=== PATIENT | female | born 1960 | race Caucasian/White ===

== ENCOUNTER 2020-05-18 21:12 | Observation (INO) | payer BC ==
[2020-05-18] MEDS ORDERED: Sodium Chloride 0.9% 10 ML Syringe FLUSH PRN (21:39)
--- NOTE | 2020-05-18 21:54 | EDM.PDOC ---
ED HPI GENERAL MEDICAL PROBLEM - General Chief Complaint: Cardiovascular Problem Stated Complaint: CHEST PAIN/TIGHTNESS Time Seen by Provider: 05/18/20 21:30 Source of Information: Reports: Patient History Limitations: Reports: No Limitations - History of Present Illness INITIAL COMMENTS - FREE TEXT/NARRATIVE: 59 YO WF PRESENTS TO ER COMPLAINING OF CHEST PAIN ON/OFF X 3 DAYS. PT REPORTS SHE HASN'T BEEN FEELING WELL FOR THE LAST 5 DAYS WITH COMPLAINTS OF GENERALIZED HEADACHE, DIZZINESS, CHEST TIGHTNESS AND NAUSEA. PT WAS SEEN IN CLINIC 3 DAYS AGO AND HAD A FULL EVALUATION INCLUDING COVID TEST, EKG, TROP I, CBC, CMP, TSH AND URINE WHICH ALL WERE NEGATIVE PER [facility] CHART/OLD RECORDS. PT WAS STARTED ON LISINOPRIL 10MG FOR NEW ONSET HYPERTENSION AND WAS TOLD HER SYMPTOMS WERE RELATED TO NEW ONSET HYPERTENSION. PT REPORTS THIS WEEKEND SHE DEVELOPED PALPITATIONS, WITH CHEST PAIN AND MILD SHORTNESS OF BREATH. PT DENIES FEVER/CHILLS, NO COUGH/CONGESTION, NO MYALGIAS OR BODY ACHES. Duration: Day(s): (5) Location: Reports: Chest Quality: Reports: Pressure Severity: Moderate Improves with: Reports: Rest Worsens with: Reports: Breathing Associated Symptoms: Reports: Chest Pain, Headaches, Nausea/Vomiting, Shortness of Breath. Denies: Cough, cough w sputum, Fever/Chills, Malaise, Rash, Seizure, Syncope, Weakness Left Upper Chest Pain Score (Numeric/FACES): 5 - Related Data Allergies Allergy/AdvReac Type Severity Reaction Status Date / Time No Known Allergies Allergy Verified 05/18/20 22:38 Home Meds: Home Meds Ascorbate Calcium [Vitamin C] 500 mg PO DAILY 01/18/14 [History] Calcium Carbonate/Vitamin D3 [Caltrate 600 Plus D3 Tablet] 1 tab PO DAILY 01/18/14 [History] Cetirizine [ZyrTEC] 10 mg PO DAILY PRN 01/18/14 [History] Cholecalciferol (Vitamin D3) [Vitamin D3] 2,000 unit PO ASDIRECTED 01/18/14 [History] Ibuprofen 200 mg PO Q4H PRN 01/18/14 [History] Multivitamin with Minerals [Multiple Vitamin] 1 tab PO DAILY 01/18/14 [History] Vitamin E 1,000 units PO DAILY 01/18/14 [History] ED ROS GENERAL - Review of Systems Review Of Systems: See Below Constitutional: Reports: No Symptoms HEENT: Reports: No Symptoms Respiratory: Reports: Shortness of Breath Cardiovascular: Reports: Chest Pain, Blood Pressure Problem, Lightheadedness Endocrine: Reports: No Symptoms GI/Abdominal: Reports: Nausea. Denies: Abdominal Pain, Diarrhea, Vomiting : Reports: No Symptoms Musculoskeletal: Reports: No Symptoms Skin: Reports: No Symptoms Neurological: Reports: Headache Psychiatric: Reports: No Symptoms Hematologic/Lymphatic: Reports: No Symptoms Immunologic: Reports: No Symptoms ED EXAM, GENERAL - Physical Exam Exam: See Below Exam Limited By: No Limitations General Appearance: Alert, WD/WN, No Apparent Distress Eye Exam: Bilateral Eye: EOMI, PERRL Head: Atraumatic, Normocephalic Neck: Normal Inspection, Supple, Non-Tender, Full Range of Motion Respiratory/Chest: No Respiratory Distress, Lungs Clear, Normal Breath Sounds, No Accessory Muscle Use, Chest Non-Tender Cardiovascular: Normal Peripheral Pulses, Regular Rate, Rhythm, No Edema, No G allop, No JVD, No Murmur, No Rub GI/Abdominal: Normal Bowel Sounds, Soft, Non-Tender, No Organomegaly, No Distention, No Abnormal Bruit, No Mass Back Exam: Normal Inspection, Full Range of Motion, NT Extremities: Normal Inspection, Normal Range of Motion, Non-Tender, Normal Capillary Refill, No Pedal Edema Neurological: Alert, Oriented, CN II-XII Intact, Normal Cognition, Normal Gait, Normal Reflexes, No Motor/Sensory Deficits Psychiatric: Normal Affect, Normal Mood Skin Exam: Warm, Dry, Intact, Normal Color, No Rash #1 Interpretation EKG Date: 05/18/20 Time: 21:24 Rhythm: NSR Rate (Beats/Min): 78 [place]: Normal P-Wave: Present QRS: Normal ST-T: Normal QT: Normal Comparison: No Change Course - Vital Signs Last Recorded V/S: Last Vital Signs Temp 36.3 C 05/18/20 21:15 Pulse 89 05/18/20 21:15 Resp 15 05/18/20 21:15 BP 182/104 H 05/18/20 21:15 Pulse Ox 96 05/18/20 21:15 - Orders/Labs/Meds Orders: Active Orders 24 hr Category Date Time Status Patient Status Manage Transfer [TRANSFER] Routine ADT 05/18/20 22:42 Active Patient Status [ADT] Routine ADT 05/18/20 22:43 Active Cardiac Monitoring [RC] CONTINUOUS Care 05/18/20 22:43 Active EKG Documentation Completion [RC] ASDIRECTED Care 05/18/20 21:38 Active Oxygen Therapy [RC] PRN Care 05/18/20 22:43 Active Peripheral IV Care [RC] . DIRECTED Care 05/18/20 21:39 Active Up With Assistance [RC] ASDIRECTED Care 05/18/20 22:43 Active VTE/DVT Education [RC] PER UNIT ROUTINE Care 05/18/20 22:43 Active Vital Signs [RC] Q4H Care 05/18/20 22:43 Active Heart Healthy Diet [DIET] Diet 05/19/20 Breakfast Active CXR [Chest 2V] [CR] Stat Exams 05/18/20 21:37 Ordered B-TYPE NATRIURETIC PEPTIDE,BNP [CHEM] Stat Lab 05/18/20 21:45 Results CK W CKMB [CHEM] Stat Lab 05/18/20 21:45 Results CMP [COMPREHENSIVE METABOLIC PN,CMP] [CHEM] Stat Lab 05/18/20 21:45 Results CORONAVIRUS COVID-19 RAPID [MOLEC] Stat Lab 05/18/20 22:05 Ordered INR,PT,PROTHROMBIN TIME [COAG] Stat Lab 05/18/20 21:40 Ordered MAGNESIUM [CHEM] AM Lab 05/19/20 05:11 Ordered PTT,PARTIAL THROMBOPLSTIN TIME [COAG] Stat Lab 05/18/20 21:40 Ordered TROPONIN I [CHEM] AM Lab 05/19/20 05:11 Ordered TROPONIN I [CHEM] Stat Lab 05/18/20 21:45 Results TROPONIN I [CHEM] Timed Lab 05/19/20 02:00 Ordered Nitroglycerin [Nitro-Bid 2%] Med 05/18/20 22:45 Ordered 1 gm TOP Q6H Sodium Chloride 0.9% [Saline Flush] Med 05/18/20 21:39 Active 10 ml FLUSH Q8HR PRN Peripheral IV Insertion Adult [OM.PC] Routine Oth 05/18/20 21:39 Ordered Resuscitation Status Routine Resus Stat 05/18/20 22:43 Ordered EKG 12 Lead [EK] Stat Ther 05/18/20 21:23 Ordered Medication Orders Nitroglycerin (Nitro-Bid 2%) 1 gm TOP Q6H BHARATI Sodium Chloride (Saline Flush) 10 ml FLUSH Q8HR PRN PRN Reason: keep vein open Last Admin: 05/18/20 21:45 Dose: 10 ml Documented by: CHIQUIS Labs: Laboratory Tests 05/18/20 05/18/20 05/18/20 Range/Units 21:45 21:45 21:45 WBC 4.97 L (5.00-10.00) 10^3/uL RBC 4.48 (3.80-5.50) 10^6/uL Hgb 13.5 (12.0-16.0) g/dL Hct 41.6 (37.0-47.0) % MCV 92.9 H (82.0-92.0) fL MCH 30.1 (27.0-31.0) pg MCHC 32.5 (32.0-36.0) g/dL RDW 12.6 (11.5-14.5) % Plt Count 181 (150-400) 10^3/uL MPV 10.0 (7.4-10.4) fL Immature Gran % (Auto) 0.0 (0.0-5.0) % Neut % (Auto) 60.2 (50.0-70.0) % Lymph % (Auto) 27.4 (20.0-40.0) % Vance % (Auto) 7.6 (2.0-8.0) % Eos % (Auto) 4.2 H (1.0-3.0) % Baso % (Auto) 0.6 (0.0-1.0) % Neut # (Auto) 2.99 (2.50-7.00) 10^3/uL Lymph # (Auto) 1.36 (1.00-4.00) 10^3/uL Vance # (Auto) 0.38 (0.10-0.80) 10^3/uL Eos # (Auto) 0.21 (0.10-0.30) 10^3/uL Baso # (Auto) 0.03 (0.00-0.10) 10^3/uL Immature Gran # (Auto) 0.00 (0.00-0.50) 10^3/uL D-Dimer, Quantitative 127 (<400) ng/mL Sodium 145 (136-145) mmol/L Potassium 3.8 (3.3-5.3) mmol/L Chloride 105 (98-115) mmol/L Carbon Dioxide 30.0 (21.0-32.0) mmol/L Anion Gap 13.8 (5-15) mmol/L BUN 24 (6-25) mg/dL Creatinine 1.14 (0.51-1.17) mg/dL Est Cr Clr Drug Dosing TNP Estimated GFR (MDRD) 48 mL/min Glucose 94 (75 - 99) mg/dL Calcium 8.9 (8.7-10.3) mg/dL Total Bilirubin 0.7 (0.2-1.0) mg/dL AST 21 (15-37) U/L ALT 24 (12-78) U/L Alkaline Phosphatase 88 (46-116) IU/L Creatine Kinase 124 (26-276) U/L CK-MB (CK-2) 2.20 (0.00-4.30) ng/mL Troponin I 0.04 (0.00-0.070) ng/mL Total Protein 7.2 (6.4-8.2) g/dL Albumin 4.08 (3.00-4.80) g/dL SARS CoV-2 RNA Rapid LITTLE (NEGATIVE) 05/18/20 Range/Units 22:05 WBC (5.00-10.00) 10^3/uL RBC (3.80-5.50) 10^6/uL Hgb (12.0-16.0) g/dL Hct (37.0-47.0) % MCV (82.0-92.0) fL MCH (27.0-31.0) pg MCHC (32.0-36.0) g/dL RDW (11.5-14.5) % Plt Count (150-400) 10^3/uL MPV (7.4-10.4) fL Immature Gran % (Auto) (0.0-5.0) % Neut % (Auto) (50.0-70.0) % Lymph % (Auto) (20.0-40.0) % Vance % (Auto) (2.0-8.0) % Eos % (Auto) (1.0-3.0) % Baso % (Auto) (0.0-1.0) % Neut # (Auto) (2.50-7.00) 10^3/uL Lymph # (Auto) (1.00-4.00) 10^3/uL Vance # (Auto) (0.10-0.80) 10^3/uL Eos # (Auto) (0.10-0.30) 10^3/uL Baso # (Auto) (0.00-0.10) 10^3/uL Immature Gran # (Auto) (0.00-0.50) 10^3/uL D-Dimer, Quantitative (<400) ng/mL Sodium (136-145) mmol/L Potassium (3.3-5.3) mmol/L Chloride (98-115) mmol/L Carbon Dioxide (21.0-32.0) mmol/L Anion Gap (5-15) mmol/L BUN (6-25) mg/dL Creatinine (0.51-1.17) mg/dL Est Cr Clr Drug Dosing Estimated GFR (MDRD) mL/min Glucose (75 - 99) mg/dL Calcium (8.7-10.3) mg/dL Total Bilirubin (0.2-1.0) mg/dL AST (15-37) U/L ALT (12-78) U/L Alkaline Phosphatase (46-116) IU/L Creatine Kinase (26-276) U/L CK-MB (CK-2) (0.00-4.30) ng/mL Troponin I (0.00-0.070) ng/mL Total Protein (6.4-8.2) g/dL Albumin (3.00-4.80) g/dL SARS CoV-2 RNA Rapid LITTLE Negative (NEGATIVE) Meds: Medications Generic Name Dose Route Start Last Admin Trade Name Freq PRN Reason Stop Dose Admin Nitroglycerin 1 gm 05/18/20 22:45 Nitro-Bid 2% TOP Q6H BHARATI Sodium Chloride 10 ml 05/18/20 21:39 05/18/20 21:45 Saline Flush FLUSH 10 ml Q8HR PRN Administration keep vein open Discontinued Medications Generic Name Dose Route Start Last Admin Trade Name Freq PRN Reason Stop Dose Admin Aspirin 324 mg 05/18/20 22:45 Aspirin PO 05/18/20 22:46 ONETIME ONE Ketorolac Tromethamine 30 mg 05/18/20 22:27 05/18/20 22:32 Toradol IVPUSH 05/18/20 22:28 30 mg ONETIME ONE Administration - Radiology Interpretation Free Text/Narrative:: CXR- NAD Departure - Departure Time of Disposition: 22:46 Disposition: Refer to Observation Condition: Good Clinical Impression: Uncontrolled hypertension Chest pain Qualifiers: Chest pain type: unspecified Qualified Code(s): R07.9 - Chest pain, unspecified Referrals: Viki Lo, HOP TRAINER [Primary Care Provider] - Forms: ED Department Discharge Sepsis Event Note (ED) - Focused Exam Vital Signs: Vital Signs Temp Pulse Resp BP Pulse Ox 05/18/20 21:15 36.3 C 89 15 182/104 H 96 - My Orders Last 24 Hours: My Active Orders 05/18/20 21:23 EKG 12 Lead [EK] Stat 05/18/20 21:37 CXR [Chest 2V] [CR] Stat 05/18/20 21:38 EKG Documentation Completion [RC] ASDIRECTED 05/18/20 21:39 Peripheral IV Care [RC] . DIRECTED Sodium Chloride 0.9% [Saline Flush] 10 ml FLUSH Q8HR PRN Peripheral IV Insertion Adult [OM.PC] Routine 05/18/20 21:40 INR,PT,PROTHROMBIN TIME [COAG] Stat PTT,PARTIAL THROMBOPLSTIN TIME [COAG] Stat 05/18/20 21:45 B-TYPE NATRIURETIC PEPTIDE,BNP [CHEM] Stat CK W CKMB [CHEM] Stat CMP [COMPREHENSIVE METABOLIC PN,CMP] [CHEM] Stat TROPONIN I [CHEM] Stat 05/18/20 22:05 CORONAVIRUS COVID-19 RAPID [MOLEC] Stat 05/18/20 22:42 Patient Status Manage Transfer [TRANSFER] Routine 05/18/20 22:43 Patient Status [ADT] Routine Cardiac Monitoring [RC] CONTINUOUS Oxygen Therapy [RC] PRN Up With Assistance [RC] ASDIRECTED VTE/DVT Education [RC] PER UNIT ROUTINE Vital Signs [RC] Q4H Resuscitation Status Routine 05/18/20 22:45 Nitroglycerin [Nitro-Bid 2%] 1 gm TOP Q6H 05/19/20 02:00 TROPONIN I [CHEM] Timed 05/19/20 05:11 MAGNESIUM [CHEM] AM TROPONIN I [CHEM] AM 05/19/20 Breakfast Heart Healthy Diet [DIET] - Assessment/Plan Last 24 Hours: My Active Orders 05/18/20 21:23 EKG 12 Lead [EK] Stat 05/18/20 21:37 CXR [Chest 2V] [CR] Stat 05/18/20 21:38 EKG Documentation Completion [RC] ASDIRECTED 05/18/20 21:39 Peripheral IV Care [RC] . DIRECTED Sodium Chloride 0.9% [Saline Flush] 10 ml FLUSH Q8HR PRN Peripheral IV Insertion Adult [OM.PC] Routine 05/18/20 21:40 INR,PT,PROTHROMBIN TIME [COAG] Stat PTT,PARTIAL THROMBOPLSTIN TIME [COAG] Stat 05/18/20 21:45 B-TYPE NATRIURETIC PEPTIDE,BNP [CHEM] Stat CK W CKMB [CHEM] Stat CMP [COMPREHENSIVE METABOLIC PN,CMP] [CHEM] Stat TROPONIN I [CHEM] Stat 05/18/20 22:05 CORONAVIRUS COVID-19 RAPID [MOLEC] Stat 05/18/20 22:42 Patient Status Manage Transfer [TRANSFER] Routine 05/18/20 22:43 Patient Status [ADT] Routine Cardiac Monitoring [RC] CONTINUOUS Oxygen Therapy [RC] PRN Up With Assistance [RC] ASDIRECTED VTE/DVT Education [RC] PER UNIT ROUTINE Vital Signs [RC] Q4H Resuscitation Status Routine 05/18/20 22:45 Nitroglycerin [Nitro-Bid 2%] 1 gm TOP Q6H 05/19/20 02:00 TROPONIN I [CHEM] Timed 05/19/20 05:11 MAGNESIUM [CHEM] AM TROPONIN I [CHEM] AM 05/19/20 Breakfast Heart Healthy Diet [DIET] Assessment:: 1. CHEST PAIN 2. UNCONTROLLED HYPERTENSION Plan: 1. ADMIT TO MEDICINE- [facility] ACCEPTING 2. NITRO/ASA 3. TROP I Q4 X 3 4. SUPPORTIVE CARE
[2020-05-18] MEDS ORDERED: Ketorolac 30 MG/ML SDV IVPUSH ONE (22:27)
[2020-05-18 22:28] LABS: ANION GAP 13.8 mmol/L (5-15); CHLORIDE,CL 105 mmol/L (98-115); SODIUM,NA 145 mmol/L (136-145)
[2020-05-18] MEDS ORDERED: Aspirin 81 MG Tab.Chew PO ONE (22:45)
[2020-05-18] MEDS: Nitroglycerin 2% Oint 1 GM UD Packet TOP SCH (23:09)
[2020-05-18 23:36] LABS: PTT,PARTIAL THROMBOPLSTIN TIME 25.7 SEC (22.8-31.4)
[2020-05-19] MEDS ORDERED: Acetaminophen 325 MG Tab PO PRN ×2 (00:01→04:36)
[2020-05-19] MEDS ORDERED: Nicotine 21 MG/24 Hr Patch TRDERM SCH (00:15)
[2020-05-19] MEDS: Nitroglycerin 2% Oint 1 GM UD Packet TOP SCH (04:55)
--- NOTE | 2020-05-19 08:45 | CT ---
[id number] CT/CT Head WO IV EXAM: CT Head WO IV CLINICAL DATA: HEADACHE. COMPARISON STUDY: None FINDINGS: No intracranial hemorrhage, extra-axial fluid collection, mass, or acute ischemia. No hydrocephalus. Calvarium intact. Paranasal sinusitis. Right mastoid air cells and middle ear cavities are clear. Mild mucosal thickening in the left middle ear. No air-fluid levels. Findings are nonspecific. IMPRESSION: Negative examination of the brain. Paranasal sinusitis as well as mild mucosal thickening in the left middle ear, nonspecific. Correlate for left-sided headache. Jaren Valencia MD 05/19/20 0843 Thank you for allowing us to participate in the care of your patient.
--- NOTE | 2020-05-19 08:56 | CR ---
[id number] RAD/RAD Chest PA And Lateral EXAM: RAD Chest PA And Lateral INDICATION: CHEST PAIN/TIGHTNESS COMPARISON: None. DISCUSSION: Cardiomediastinal silhouette is normal in size and contour. Lungs are clear. No pleural effusion or pneumothorax. Nipple artifact bilaterally in the mid lungs. IMPRESSION: Negative examination of the chest. Jaren Valencia MD 05/19/20 0855 Thank you for allowing us to participate in the care of your patient.
[2020-05-19 09:01] LABS: ANION GAP 14.3 mmol/L (5-15); CHLORIDE,CL 108 mmol/L (98-115); SODIUM,NA 144 mmol/L (136-145)
--- NOTE | 2020-05-19 10:00 | PCM.HP.2 ---
H&P History of Present Illness - General Date of Service: 05/19/20 Admit Problem/Dx: Admission Diagnosis/Problem Admission Diagnosis/Problem Chest pain Source of Information: Patient History Limitations: Reports: No Limitations - History of Present Illness Initial Comments - Free Text/Narative: 59 year old female presented to the ED on 05/18/20 via personal vehicle with complaints of chest pain, headache and dizziness that had been present intermittently for several days. She was recently started on lisinopril for HTN. Cardiac workup was negative, she was admitted observation for ACS rule out and monitoring. Left Upper Chest Pain Score (Numeric/FACES): 0 Headache Pain Score (Numeric/FACES): 4 - Related Data Allergies/Adverse Reactions: Allergies Allergy/AdvReac Type Severity Reaction Status Date / Time No Known Allergies Allergy Verified 05/18/20 22:38 Home Medications: Home Meds Ascorbate Calcium [Vitamin C] 500 mg PO BEDTIME 01/18/14 [History] Cetirizine [ZyrTEC] 10 mg PO DAILY PRN 01/18/14 [History] Ibuprofen 200 mg PO Q4H PRN 01/18/14 [History] Multivitamin with Minerals [Multiple Vitamin] 1 tab PO BEDTIME 01/18/14 [History] Vitamin E 1,000 units PO BEDTIME 01/18/14 [History] Albuterol Sulfate [Albuterol Sulfate Hfa] 2 puff INH ASDIRECTED PRN 05/18/20 [History] Calcium Carbonate/Vitamin D3 [Calcium 600-Vit D3 200 Tablet] 1 tab PO BEDTIME 05/18/20 [History] Chromium Amino Acid Chelate [Chromium] 200 mcg PO BEDTIME 05/18/20 [History] Flaxseed Oil [Flaxseed] 1,000 mg PO BEDTIME PRN 05/18/20 [History] Red Yeast Rice Extract 1 cap PO BEDTIME PRN 05/18/20 [History] Turmeric/Turmeric Ext/Pepr Ext [Turmeric Complex 500 mg Cap] 1 cap PO BEDTIME 05/18/20 [History] lisinopriL [Lisinopril] 10 mg PO BEDTIME 05/18/20 [History] Acetaminophen [Tylenol] 650 mg PO Q4H PRN tablet 05/19/20 [Rx] Amoxicillin/Clavulanate K [Augmentin 875-125 MG] 1 tab PO BID 10 Days #20 tablet 05/19/20 [Rx] Fluticasone Propionate [Flonase] 16 gm .XX BID #1 bottle 05/19/20 [Rx] Past Medical History Cardiovascular History: Reports: High Cholesterol, Hypertension Gastrointestinal History: Reports: GERD, Irritable Bowel Syndrome 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: Psychiatric History: Reports: Anxiety, Depression - Infectious Disease History Infectious Disease History: Reports: Measles, Mumps - Past Surgical History HEENT Surgical History: Reports: LASIK GI Surgical History: Reports: Appendectomy Female Surgical History: Reports: Section Other Neurological Surgeries/Procedures: 2 back surgeries Musculoskeletal Surgical History: Reports: Other (See Below) Other Musculoskeletal Surgeries/Procedures:: 2 back surgeries Social & Family History - Family History Family Medical History: No Pertinent Family History - Tobacco Use Tobacco Use Status *Q: Current Every Day Tobacco User Years of Tobacco use: 40 Packs/Tins Daily: 0.5 Tobacco Use Comment: Patient would like a nicotine patch while admitted here - Caffeine Use Caffeine Use: Reports: Coffee, Soda Other Caffeine Use: diet coke - Recreational Drug Use Recreational Drug Use: No H&P Review of Systems - Review of Systems: Review Of Systems: See Below General: Reports: Fatigue. Denies: Fever, Chills, Weakness HEENT: Reports: Headaches. Denies: Sinus Congestion, Sore Throat, Vertigo (not currently) Pulmonary: Denies: Shortness of Breath, Pleuritic Chest Pain, Cough Cardiovascular: Denies: Chest Pain (not currently), Palpitations (not currently), Edema Gastrointestinal: Denies: Abdominal Pain, Black Stool, Bloody Stool, Constipation, Diarrhea, Nausea, Vomiting Genitourinary: Denies: Dysuria, Frequency, Urgency, Hematuria Musculoskeletal: Denies: Back Pain, Joint Pain, Joint Swelling Skin: Denies: Jaundice, Bruising, Rash Psychiatric: Denies: Confusion, Depression, Anxiety Neurological: Reports: Headache. Denies: Confusion, Difficulty Walking, Weakness Exam - Exam Exam: See Below - Vital Signs Vital Signs: Last Vital Signs Temp 36.7 C 05/19/20 06:46 Pulse 70 05/19/20 06:46 Resp 16 05/19/20 06:46 BP 127/76 05/19/20 06:46 Pulse Ox 94 L 05/19/20 06:46 Weight: 63.616 kg - Exam Physical Exam Comments:: GENERAL: Well-appearing adult in no acute distress lying in bed. HEENT: Normocephalic, atraumatic. Conjunctiva clear. Nares patent without discharge. Mucous membranes moist, posterior pharynx unremarkable. NECK: Supple, no masses. CV: Regular rate and rhythm, no murmurs, rubs, or gallops. 2+ radial pulses. PULMONARY: Normal effort, clear to auscultation bilaterally, no wheezes, rales, or rhonchi. ABDOMEN: Positive bowel sounds, soft, nontender, nondistended. EXTREMITIES: No edema, cyanosis, or clubbing. MUSCULOSKELETAL: Moves all extremities well. NEUROLOGICAL: No obvious deficits. DERMATOLOGIC: No rashes or suspicious lesions in exposed areas. PSYCHIATRIC: Alert, interactive, appropriate affect. - Patient Data Lab Results Last 24 hrs: Laboratory Results - last 24 hr 05/18/20 05/18/20 05/18/20 Range/Units 21:45 21:45 21:45 WBC 4.97 L (5.00-10.00) 10^3/uL RBC 4.48 (3.80-5.50) 10^6/uL Hgb 13.5 (12.0-16.0) g/dL Hct 41.6 (37.0-47.0) % MCV 92.9 H (82.0-92.0) fL MCH 30.1 (27.0-31.0) pg MCHC 32.5 (32.0-36.0) g/dL RDW 12.6 (11.5-14.5) % Plt Count 181 (150-400) 10^3/uL MPV 10.0 (7.4-10.4) fL Immature Gran % (Auto) 0.0 (0.0-5.0) % Neut % (Auto) 60.2 (50.0-70.0) % Lymph % (Auto) 27.4 (20.0-40.0) % Dickson % (Auto) 7.6 (2.0-8.0) % Eos % (Auto) 4.2 H (1.0-3.0) % Baso % (Auto) 0.6 (0.0-1.0) % Neut # (Auto) 2.99 (2.50-7.00) 10^3/uL Lymph # (Auto) 1.36 (1.00-4.00) 10^3/uL Dickson # (Auto) 0.38 (0.10-0.80) 10^3/uL Eos # (Auto) 0.21 (0.10-0.30) 10^3/uL Baso # (Auto) 0.03 (0.00-0.10) 10^3/uL Immature Gran # (Auto) 0.00 (0.00-0.50) 10^3/uL PT (9.2-11.2) SEC INR (0.9-1.1) APTT (22.8-31.4) SEC D-Dimer, Quantitative 127 (<400) ng/mL Sodium 145 (136-145) mmol/L Potassium 3.8 (3.3-5.3) mmol/L Chloride 105 (98-115) mmol/L Carbon Dioxide 30.0 (21.0-32.0) mmol/L Anion Gap 13.8 (5-15) mmol/L BUN 24 (6-25) mg/dL Creatinine 1.14 (0.51-1.17) mg/dL Est Cr Clr Drug Dosing TNP Estimated GFR (MDRD) 48 mL/min Glucose 94 (75 - 99) mg/dL Calcium 8.9 (8.7-10.3) mg/dL Magnesium (1.8-2.4) mg/dL Total Bilirubin 0.7 (0.2-1.0) mg/dL AST 21 (15-37) U/L ALT 24 (12-78) U/L Alkaline Phosphatase 88 (46-116) IU/L Creatine Kinase 124 (26-276) U/L CK-MB (CK-2) 2.20 (0.00-4.30) ng/mL Troponin I 0.04 (0.00-0.070) ng/mL C-Reactive Protein (0.0-0.9) mg/dL B-Natriuretic Peptide 32 (0-100) pg/mL Total Protein 7.2 (6.4-8.2) g/dL Albumin 4.08 (3.00-4.80) g/dL SARS CoV-2 RNA Rapid LITTLE (NEGATIVE) 05/18/20 05/18/20 05/19/20 Range/Units 21:45 22:05 02:45 WBC (5.00-10.00) 10^3/uL RBC (3.80-5.50) 10^6/uL Hgb (12.0-16.0) g/dL Hct (37.0-47.0) % MCV (82.0-92.0) fL MCH (27.0-31.0) pg MCHC (32.0-36.0) g/dL RDW (11.5-14.5) % Plt Count (150-400) 10^3/uL MPV (7.4-10.4) fL Immature Gran % (Auto) (0.0-5.0) % Neut % (Auto) (50.0-70.0) % Lymph % (Auto) (20.0-40.0) % Dickson % (Auto) (2.0-8.0) % Eos % (Auto) (1.0-3.0) % Baso % (Auto) (0.0-1.0) % Neut # (Auto) (2.50-7.00) 10^3/uL Lymph # (Auto) (1.00-4.00) 10^3/uL Dickson # (Auto) (0.10-0.80) 10^3/uL Eos # (Auto) (0.10-0.30) 10^3/uL Baso # (Auto) (0.00-0.10) 10^3/uL Immature Gran # (Auto) (0.00-0.50) 10^3/uL PT 9.7 (9.2-11.2) SEC INR 1.0 (0.9-1.1) APTT 25.7 (22.8-31.4) SEC D-Dimer, Quantitative (<400) ng/mL Sodium (136-145) mmol/L Potassium (3.3-5.3) mmol/L Chloride (98-115) mmol/L Carbon Dioxide (21.0-32.0) mmol/L Anion Gap (5-15) mmol/L BUN (6-25) mg/dL Creatinine (0.51-1.17) mg/dL Est Cr Clr Drug Dosing Estimated GFR (MDRD) mL/min Glucose (75 - 99) mg/dL Calcium (8.7-10.3) mg/dL Magnesium (1.8-2.4) mg/dL Total Bilirubin (0.2-1.0) mg/dL AST (15-37) U/L ALT (12-78) U/L Alkaline Phosphatase (46-116) IU/L Creatine Kinase (26-276) U/L CK-MB (CK-2) (0.00-4.30) ng/mL Troponin I 0.05 (0.00-0.070) ng/mL C-Reactive Protein (0.0-0.9) mg/dL B-Natriuretic Peptide (0-100) pg/mL Total Protein (6.4-8.2) g/dL Albumin (3.00-4.80) g/dL SARS CoV-2 RNA Rapid LITTLE Negative (NEGATIVE) 05/19/20 05/19/20 05/19/20 Range/Units 07:10 07:10 07:15 WBC 4.92 L (5.00-10.00) 10^3/uL RBC 3.96 (3.80-5.50) 10^6/uL Hgb 12.1 (12.0-16.0) g/dL Hct 37.6 (37.0-47.0) % MCV 94.9 H (82.0-92.0) fL MCH 30.6 (27.0-31.0) pg MCHC 32.2 (32.0-36.0) g/dL RDW 12.6 (11.5-14.5) % Plt Count 160 (150-400) 10^3/uL MPV 10.2 (7.4-10.4) fL Immature Gran % (Auto) 0.0 (0.0-5.0) % Neut % (Auto) 62.8 (50.0-70.0) % Lymph % (Auto) 23.6 (20.0-40.0) % Dickson % (Auto) 7.9 (2.0-8.0) % Eos % (Auto) 5.1 H (1.0-3.0) % Baso % (Auto) 0.6 (0.0-1.0) % Neut # (Auto) 3.09 (2.50-7.00) 10^3/uL Lymph # (Auto) 1.16 (1.00-4.00) 10^3/uL Dickson # (Auto) 0.39 (0.10-0.80) 10^3/uL Eos # (Auto) 0.25 (0.10-0.30) 10^3/uL Baso # (Auto) 0.03 (0.00-0.10) 10^3/uL Immature Gran # (Auto) 0.00 (0.00-0.50) 10^3/uL PT (9.2-11.2) SEC INR (0.9-1.1) APTT (22.8-31.4) SEC D-Dimer, Quantitative (<400) ng/mL Sodium 144 (136-145) mmol/L Potassium 3.8 (3.3-5.3) mmol/L Chloride 108 (98-115) mmol/L Carbon Dioxide 25.5 (21.0-32.0) mmol/L Anion Gap 14.3 (5-15) mmol/L BUN 23 (6-25) mg/dL Creatinine 0.89 (0.51-1.17) mg/dL Est Cr Clr Drug Dosing 57.32 Estimated GFR (MDRD) > 60 mL/min Glucose 84 (75 - 99) mg/dL Calcium 8.6 L (8.7-10.3) mg/dL Magnesium 1.9 (1.8-2.4) mg/dL Total Bilirubin (0.2-1.0) mg/dL AST (15-37) U/L ALT (12-78) U/L Alkaline Phosphatase (46-116) IU/L Creatine Kinase (26-276) U/L CK-MB (CK-2) (0.00-4.30) ng/mL Troponin I 0.04 (0.00-0.070) ng/mL C-Reactive Protein 0.3 (0.0-0.9) mg/dL B-Natriuretic Peptide (0-100) pg/mL Total Protein (6.4-8.2) g/dL Albumin (3.00-4.80) g/dL SARS CoV-2 RNA Rapid LITTLE (NEGATIVE) Result Diagrams: 05/19/20 07:10 05/19/20 07:10 Sepsis Event Note - Evaluation Sepsis Screening Result: No Definite Risk - Focused Exam Vital Signs: Vital Signs Temp Pulse Pulse Resp BP BP Pulse Ox 05/19/20 06:46 36.7 C 70 16 127/76 94 L 05/19/20 04:00 74 104/73 05/19/20 03:00 36.3 C 78 16 87/55 L 93 L 05/18/20 23:35 36.9 C 73 16 124/68 93 L 05/18/20 23:15 72 12 138/82 94 L 05/18/20 23:00 73 16 136/79 95 05/18/20 22:45 76 14 133/81 95 05/18/20 22:43 05/18/20 22:30 78 13 141/88 H 95 05/18/20 22:15 75 14 141/85 H 96 Pulse Ox 05/19/20 06:46 05/19/20 04:00 05/19/20 03:00 05/18/20 23:35 05/18/20 23:15 05/18/20 23:00 05/18/20 22:45 05/18/20 22:43 93 L 05/18/20 22:30 05/18/20 22:15 Problem List Initiated/Reviewed/Updated: Yes Orders Last 24hrs: Active Orders 24 hr Category Date Time Status Patient Status [ADT] Routine ADT 05/18/20 22:43 Active Cardiac Monitoring [RC] 03,07,11,15,19,23 Care 05/18/20 22:43 Active Oxygen Therapy [RC] PRN Care 05/18/20 22:43 Active Ready for Discharge [RC] PER UNIT ROUTINE Care 05/19/20 09:58 Ordered Up With Assistance [RC] ASDIRECTED Care 05/18/20 22:43 Active VTE/DVT Education [RC] PER UNIT ROUTINE Care 05/18/20 22:43 Active Vital Signs [RC] 0300,0700,1100,1500,1900,2300 Care 05/18/20 22:43 Active Heart Healthy Diet [DIET] Diet 05/19/20 Breakfast Active SED RATE [REF] Routine Lab 05/19/20 07:15 Received Acetaminophen [TylenoL] Med 05/19/20 04:36 Active 650 mg PO Q4H PRN Nicotine [Habitrol] Med 05/19/20 00:15 Active 21 mg TRDERM DAILY Nitroglycerin [Nitro-Bid 2%] Med 05/18/20 22:45 Active 1 gm TOP Q6H Peripheral IV Insertion Adult [OM.PC] Routine Oth 05/18/20 21:39 Ordered Resuscitation Status Routine Resus Stat 05/18/20 22:43 Ordered EKG 12 Lead [EK] Stat Ther 05/18/20 21:23 Stop Req Medication Orders Acetaminophen (Tylenol) 650 mg PO Q4H PRN PRN Reason: Headache/Pain Last Admin: 05/19/20 04:53 Dose: 650 mg Documented by: DENIA Nicotine (Habitrol) 21 mg TRDERM DAILY [facility] Last Admin: 05/19/20 00:21 Dose: 21 mg Documented by: DENIA Nitroglycerin (Nitro-Bid 2%) 1 gm TOP Q6H [facility] Last Admin: 05/19/20 04:55 Dose: Not Given Documented by: Admin: 05/18/20 23:09 Dose: 1 gm Documented by: CHIQUIS Assessment/Plan Comment:: HPI summary: 59 year old female admitted observation telemetry for ACS rule out and headache, with dizziness, palpitations and nausea for the past five days. She was seen at the [facility] on 05/16/2020 and started on lisinopril after negative cardiac workup with similar symptoms. There has been no improvement since that time. Headache has never really went away. On 05/18/2020 she noted chest tightness with palpitations and nausea. ED course: -VS: T36.3, P 89, R15, BP 182/104, O2 sat 96% -EKG shows NSR, rate 78, no ST, twave changes -CBC, CMP unremarkable, D-dimer 127, COVID negative; troponin 0.04, CKMB 2.20, CK 124 -ASA 324mg x 1 -Toradol 30mg IVP x 1 -CXR no acute process -Topical nitro paste Hospital course: 05/19/2020: Call received overnight that patient was requesting nicotine patch and that her headache is much worse. NTG paste removed. BP 124/68. CT head ordered to rule out intracranial etiology for headache. This shows paranasal sinusitis on the left as well as mild mucosal thickening of the left inner ear. No chest pain/pressure during the night. Headache is improved with Tylenol this morning. CRP negative. No uptrend in troponin. Telemetry has remained NSR overnight. Blood pressure did dip down to the 80s systolic overnight but suspect likely due to the nitro paste which was removed and then improved. Patient reports readiness for discharge. Suspect headache due to acute sinusitis and dizziness due to mucosal thickening in the left inner ear. Hospitalization problems and plan: # Chest pain, R/O ACS - trend troponin - telemetry # Hypertension - continue lisinopril 10mg # Headache - scheduled Tylenol # Acute sinusitis - Augmentin - Flonase # Nicotine use - Nicotine patch Chronic, stable conditions: #Atrophic vaginitis #Irritable bowel syndrome with both constipation and diarrhea #Tobacco abuse #Gastroesophageal reflux disease #Moderate mixed hyperlipidemia not requiring statin therapy #Recurrent major depressive disorder, in full remission (HCC) #Moderate anxiety Hospitalization details: # FEN: oral fluids, electrolytes stable, regular diet as tolerated # PPX: ASA given in ED # Code status: Full code # Emergency contact: updated by nursing # Disposition: home this AM - Mortality Measure Prognosis:: Good
--- NOTE | 2020-05-19 10:00 | PCM.DCSUM1 ---
Discharge Summary - Hospital Course Free Text/Narrative:: Date of admission: 05/18/2020 Date of discharge: 05/19/2020 Admission diagnoses: # Chest pain, ACS ruled out # Hypertension, stable # Headache, improved # Acute sinusitis # Nicotine use Discharge diagnoses: # Chest pain, ACS ruled out # Hypertension, stable # Acute sinusitis # Nicotine use # Atrophic vaginitis # Irritable bowel syndrome with both constipation and diarrhea # Gastroesophageal reflux disease # Moderate mixed hyperlipidemia not requiring statin therapy # Recurrent major depressive disorder, in full remission (HCC) # Moderate anxiety Consultations: None Procedures: None Hospital course: 59 year old female admitted observation telemetry for ACS rule out and headache, with dizziness, palpitations and nausea for the past five days. She was seen at the [facility] on 05/16/2020 and started on lisinopril after negative cardiac workup with similar symptoms. There has been no improvement since that time. Headache has never really went away. On 05/18/2020 she noted chest tightness with palpitations and nausea. 05/19/2020: Call received overnight that patient was requesting nicotine patch and that her headache is much worse. NTG paste removed. BP 124/68. CT head ordered to rule out intracranial etiology for headache. This shows paranasal sinusitis on the left as well as mild mucosal thickening of the left inner ear. No chest pain/pressure during the night. Headache is improved with Tylenol this morning. CRP negative. No uptrend in troponin. Telemetry has remained NSR overnight. Blood pressure did dip down to the 80s systolic overnight but suspect likely due to the nitro paste which was removed and then improved. Patient reports readiness for discharge. Suspect headache due to acute sinusitis and dizziness due to mucosal thickening in the left inner ear. Discharge and follow-up recommendations: - Discharge to home, self care - New medications at discharge: - Augmentin one tab twice daily for ten days - Flonase twice daily - Follow-up this week in clinic. Consider holter monitor, monitor BP, may need increased dose of lisinopril - Discharge Data Discharge Date: 05/19/20 Discharge Disposition: Home, Self-Care 01 Condition: Good - Referral to Home Health Primary Care Physician: Viki Lo NP - Patient Instructions Diet: Regular Diet as Tolerated Activity: As Tolerated Driving: May Drive Today Notify Provider of: Fever, Increased Pain Other/Special Instructions: Return for recurrence of chest pain, shortness of breath, fever, or worsening of symptoms. - Discharge Plan *PRESCRIPTION DRUG MONITORING PROGRAM REVIEWED*: Not Applicable *COPY OF PRESCRIPTION DRUG MONITORING REPORT IN PATIENT SELWYN: Not Applicable Prescriptions/Med Rec: Amoxicillin/Clavulanate K [Augmentin 875-125 MG] 1 tab PO BID 10 Days #20 tablet Fluticasone Propionate [Flonase] 16 gm .XX BID #1 bottle Home Medications: Home Meds Ascorbate Calcium [Vitamin C] 500 mg PO BEDTIME 01/18/14 [History] Cetirizine [ZyrTEC] 10 mg PO DAILY PRN 01/18/14 [History] Ibuprofen 200 mg PO Q4H PRN 01/18/14 [History] Multivitamin with Minerals [Multiple Vitamin] 1 tab PO BEDTIME 01/18/14 [History] Vitamin E 1,000 units PO BEDTIME 01/18/14 [History] Albuterol Sulfate [Albuterol Sulfate Hfa] 2 puff INH ASDIRECTED PRN 05/18/20 [History] Calcium Carbonate/Vitamin D3 [Calcium 600-Vit D3 200 Tablet] 1 tab PO BEDTIME 05/18/20 [History] Chromium Amino Acid Chelate [Chromium] 200 mcg PO BEDTIME 05/18/20 [History] Flaxseed Oil [Flaxseed] 1,000 mg PO BEDTIME PRN 05/18/20 [History] Red Yeast Rice Extract 1 cap PO BEDTIME PRN 05/18/20 [History] Turmeric/Turmeric Ext/Pepr Ext [Turmeric Complex 500 mg Cap] 1 cap PO BEDTIME 05/18/20 [History] lisinopriL [Lisinopril] 10 mg PO BEDTIME 05/18/20 [History] Acetaminophen [Tylenol] 650 mg PO Q4H PRN tablet 05/19/20 [Rx] Amoxicillin/Clavulanate K [Augmentin 875-125 MG] 1 tab PO BID 10 Days #20 tablet 05/19/20 [Rx] Fluticasone Propionate [Flonase] 16 gm .XX BID #1 bottle 05/19/20 [Rx] Referrals: Viki Lo, [employer]IVE [Primary Care Provider] - (Follow up with Viki this week) - Discharge Summary/Plan Comment DC Time >30 min.: Yes - General Info Subjective Update: See HPI from same date for subjective/objective exam. - Patient Data Vitals - Most Recent: Last Vital Signs Temp 36.7 C 05/19/20 06:46 Pulse 70 05/19/20 06:46 Resp 16 05/19/20 06:46 BP 127/76 05/19/20 06:46 Pulse Ox 94 L 05/19/20 06:46 Weight - Most Recent: 63.616 kg I&O - Last 24 hours: Intake & Output 05/18/20 05/19/20 05/19/20 22:59 06:59 14:59 Intake Total 300 Balance 300 Lab Results - Last 24 hrs: Laboratory Results - last 24 hr 05/18/20 05/18/20 05/18/20 Range/Units 21:45 21:45 21:45 WBC 4.97 L (5.00-10.00) 10^3/uL RBC 4.48 (3.80-5.50) 10^6/uL Hgb 13.5 (12.0-16.0) g/dL Hct 41.6 (37.0-47.0) % MCV 92.9 H (82.0-92.0) fL MCH 30.1 (27.0-31.0) pg MCHC 32.5 (32.0-36.0) g/dL RDW 12.6 (11.5-14.5) % Plt Count 181 (150-400) 10^3/uL MPV 10.0 (7.4-10.4) fL Immature Gran % (Auto) 0.0 (0.0-5.0) % Neut % (Auto) 60.2 (50.0-70.0) % Lymph % (Auto) 27.4 (20.0-40.0) % [place] % (Auto) 7.6 (2.0-8.0) % Eos % (Auto) 4.2 H (1.0-3.0) % Baso % (Auto) 0.6 (0.0-1.0) % Neut # (Auto) 2.99 (2.50-7.00) 10^3/uL Lymph # (Auto) 1.36 (1.00-4.00) 10^3/uL [place] # (Auto) 0.38 (0.10-0.80) 10^3/uL Eos # (Auto) 0.21 (0.10-0.30) 10^3/uL Baso # (Auto) 0.03 (0.00-0.10) 10^3/uL Immature Gran # (Auto) 0.00 (0.00-0.50) 10^3/uL PT (9.2-11.2) SEC INR (0.9-1.1) APTT (22.8-31.4) SEC D-Dimer, Quantitative 127 (<400) ng/mL Sodium 145 (136-145) mmol/L Potassium 3.8 (3.3-5.3) mmol/L Chloride 105 (98-115) mmol/L Carbon Dioxide 30.0 (21.0-32.0) mmol/L Anion Gap 13.8 (5-15) mmol/L BUN 24 (6-25) mg/dL Creatinine 1.14 (0.51-1.17) mg/dL Est Cr Clr Drug Dosing TNP Estimated GFR (MDRD) 48 mL/min Glucose 94 (75 - 99) mg/dL Calcium 8.9 (8.7-10.3) mg/dL Magnesium (1.8-2.4) mg/dL Total Bilirubin 0.7 (0.2-1.0) mg/dL AST 21 (15-37) U/L ALT 24 (12-78) U/L Alkaline Phosphatase 88 (46-116) IU/L Creatine Kinase 124 (26-276) U/L CK-MB (CK-2) 2.20 (0.00-4.30) ng/mL Troponin I 0.04 (0.00-0.070) ng/mL C-Reactive Protein (0.0-0.9) mg/dL B-Natriuretic Peptide 32 (0-100) pg/mL Total Protein 7.2 (6.4-8.2) g/dL Albumin 4.08 (3.00-4.80) g/dL SARS CoV-2 RNA Rapid LITTLE (NEGATIVE) 05/18/20 05/18/20 05/19/20 Range/Units 21:45 22:05 02:45 WBC (5.00-10.00) 10^3/uL RBC (3.80-5.50) 10^6/uL Hgb (12.0-16.0) g/dL Hct (37.0-47.0) % MCV (82.0-92.0) fL MCH (27.0-31.0) pg MCHC (32.0-36.0) g/dL RDW (11.5-14.5) % Plt Count (150-400) 10^3/uL MPV (7.4-10.4) fL Immature Gran % (Auto) (0.0-5.0) % Neut % (Auto) (50.0-70.0) % Lymph % (Auto) (20.0-40.0) % [place] % (Auto) (2.0-8.0) % Eos % (Auto) (1.0-3.0) % Baso % (Auto) (0.0-1.0) % Neut # (Auto) (2.50-7.00) 10^3/uL Lymph # (Auto) (1.00-4.00) 10^3/uL [place] # (Auto) (0.10-0.80) 10^3/uL Eos # (Auto) (0.10-0.30) 10^3/uL Baso # (Auto) (0.00-0.10) 10^3/uL Immature Gran # (Auto) (0.00-0.50) 10^3/uL PT 9.7 (9.2-11.2) SEC INR 1.0 (0.9-1.1) APTT 25.7 (22.8-31.4) SEC D-Dimer, Quantitative (<400) ng/mL Sodium (136-145) mmol/L Potassium (3.3-5.3) mmol/L Chloride (98-115) mmol/L Carbon Dioxide (21.0-32.0) mmol/L Anion Gap (5-15) mmol/L BUN (6-25) mg/dL Creatinine (0.51-1.17) mg/dL Est Cr Clr Drug Dosing Estimated GFR (MDRD) mL/min Glucose (75 - 99) mg/dL Calcium (8.7-10.3) mg/dL Magnesium (1.8-2.4) mg/dL Total Bilirubin (0.2-1.0) mg/dL AST (15-37) U/L ALT (12-78) U/L Alkaline Phosphatase (46-116) IU/L Creatine Kinase (26-276) U/L CK-MB (CK-2) (0.00-4.30) ng/mL Troponin I 0.05 (0.00-0.070) ng/mL C-Reactive Protein (0.0-0.9) mg/dL B-Natriuretic Peptide (0-100) pg/mL Total Protein (6.4-8.2) g/dL Albumin (3.00-4.80) g/dL SARS CoV-2 RNA Rapid LITTLE Negative (NEGATIVE) 05/19/20 05/19/20 05/19/20 Range/Units 07:10 07:10 07:15 WBC 4.92 L (5.00-10.00) 10^3/uL RBC 3.96 (3.80-5.50) 10^6/uL Hgb 12.1 (12.0-16.0) g/dL Hct 37.6 (37.0-47.0) % MCV 94.9 H (82.0-92.0) fL MCH 30.6 (27.0-31.0) pg MCHC 32.2 (32.0-36.0) g/dL RDW 12.6 (11.5-14.5) % Plt Count 160 (150-400) 10^3/uL MPV 10.2 (7.4-10.4) fL Immature Gran % (Auto) 0.0 (0.0-5.0) % Neut % (Auto) 62.8 (50.0-70.0) % Lymph % (Auto) 23.6 (20.0-40.0) % [place] % (Auto) 7.9 (2.0-8.0) % Eos % (Auto) 5.1 H (1.0-3.0) % Baso % (Auto) 0.6 (0.0-1.0) % Neut # (Auto) 3.09 (2.50-7.00) 10^3/uL Lymph # (Auto) 1.16 (1.00-4.00) 10^3/uL [place] # (Auto) 0.39 (0.10-0.80) 10^3/uL Eos # (Auto) 0.25 (0.10-0.30) 10^3/uL Baso # (Auto) 0.03 (0.00-0.10) 10^3/uL Immature Gran # (Auto) 0.00 (0.00-0.50) 10^3/uL PT (9.2-11.2) SEC INR (0.9-1.1) APTT (22.8-31.4) SEC D-Dimer, Quantitative (<400) ng/mL Sodium 144 (136-145) mmol/L Potassium 3.8 (3.3-5.3) mmol/L Chloride 108 (98-115) mmol/L Carbon Dioxide 25.5 (21.0-32.0) mmol/L Anion Gap 14.3 (5-15) mmol/L BUN 23 (6-25) mg/dL Creatinine 0.89 (0.51-1.17) mg/dL Est Cr Clr Drug Dosing 57.32 Estimated GFR (MDRD) > 60 mL/min Glucose 84 (75 - 99) mg/dL Calcium 8.6 L (8.7-10.3) mg/dL Magnesium 1.9 (1.8-2.4) mg/dL Total Bilirubin (0.2-1.0) mg/dL AST (15-37) U/L ALT (12-78) U/L Alkaline Phosphatase (46-116) IU/L Creatine Kinase (26-276) U/L CK-MB (CK-2) (0.00-4.30) ng/mL Troponin I 0.04 (0.00-0.070) ng/mL C-Reactive Protein 0.3 (0.0-0.9) mg/dL B-Natriuretic Peptide (0-100) pg/mL Total Protein (6.4-8.2) g/dL Albumin (3.00-4.80) g/dL SARS CoV-2 RNA Rapid LITTLE (NEGATIVE) Med Orders - Current: Current Medications Acetaminophen (Tylenol) 650 mg PO Q4H PRN PRN Reason: Headache/Pain Last Admin: 05/19/20 04:53 Dose: 650 mg Documented by: Nicotine (Habitrol) 21 mg TRDERM DAILY BHARATI Last Admin: 05/19/20 00:21 Dose: 21 mg Documented by: Nitroglycerin (Nitro-Bid 2%) 1 gm TOP Q6H BHARATI Last Admin: 05/19/20 04:55 Dose: Not Given Documented by: Discontinued Medications Acetaminophen (Tylenol) 650 mg PO Q6H PRN PRN Reason: Headache/Pain Last Admin: 05/19/20 00:20 Dose: 650 mg Documented by: Aspirin (Aspirin) 324 mg PO ONETIME ONE Stop: 05/18/20 22:46 Last Admin: 05/18/20 23:08 Dose: 324 mg Documented by: Ketorolac Tromethamine (Toradol) 30 mg IVPUSH ONETIME ONE Stop: 05/18/20 22:28 Last Admin: 05/18/20 22:32 Dose: 30 mg Documented by: Sodium Chloride (Saline Flush) 10 ml FLUSH Q8HR PRN PRN Reason: keep vein open Last Admin: 05/18/20 21:45 Dose: 10 ml Documented by: - Exam Physical Findings Comments:: GENERAL: Well-appearing adult in no acute distress, lying in bed. HEENT: Normocephalic, atraumatic. Conjunctiva clear. Nares patent without discharge. Mucous membranes moist, posterior pharynx unremarkable. NECK: Supple, no masses. CV: Regular rate and rhythm, no murmurs, rubs, or gallops. 2+ radial pulses. PULMONARY: Normal effort, clear to auscultation bilaterally, no wheezes, rales, or rhonchi. ABDOMEN: Positive bowel sounds, soft, nontender, nondistended. EXTREMITIES: No edema, cyanosis, or clubbing. MUSCULOSKELETAL: Moves all extremities well. NEUROLOGICAL: No obvious deficits. DERMATOLOGIC: No rashes or suspicious lesions in exposed areas. PSYCHIATRIC: Alert, interactive, appropriate affect.
== END 2020-05-19 10:35 | disposition home or self-care (01) ==
LOC: KA.ED 21:12 → KA.MS 22:42 → UNDOADMOB 23:25
PROVIDERS: ADMIT Physician Assistant Medical; ATTEND Nurse Practitioner Family
DX: R07.9 Chest pain, unspecified (principal); K58.1 Irritable bowel syndrome with constipation; K58.0 Irritable bowel syndrome with diarrhea; J01.90 Acute sinusitis, unspecified; R51.9 Headache, unspecified; I10 Essential (primary) hypertension; F41.9 Anxiety disorder, unspecified; F17.210 Nicotine dependence, cigarettes, uncomplicated; K21.9 Gastro-esophageal reflux disease without esophagitis; E87.2 Acidosis; F33.40 Major depressive disorder, recurrent, in remission, unspecified; N76.0 Acute vaginitis; Z79.899 Other long term (current) drug therapy; Z98.890 Other specified postprocedural states; Z20.828 Contact with and (suspected) exposure to other viral communicable diseases
CPT/HCPCS: 36415; 70450; 71046; 80048; 80053; 82550; 82553; 83735; 83880; 84484; 85025; 85379; 85610; 85652; 85730; 86140; 96374; 99220; 99284; 99285-25; A9270-GY; G0378; J1885; U0002

== ENCOUNTER 2022-11-27 10:05 | Emergency (ER) | payer BC ==
[2022-11-27] MEDS ORDERED: Ketorolac 30 MG/ML SDV IM ONE (10:35)
== END 2022-11-27 11:00 | disposition home or self-care (01) ==
LOC: KA.ED 10:05
DX: H61.21 Impacted cerumen, right ear (principal); M26.621 Arthralgia of right temporomandibular joint; I10 Essential (primary) hypertension; Z87.891 Personal history of nicotine dependence; Z79.899 Other long term (current) drug therapy
CPT/HCPCS: 96372; 99283; 99284; J1885

== ENCOUNTER 2023-06-01 16:41 | Emergency (ER) | payer BC ==
[2023-06-01] MEDS ORDERED: Sodium Chloride 0.9% 10 ML Syringe FLUSH PRN (16:43)
[2023-06-01] MEDS: Nitroglycerin 0.4 MG Tab.SL SL PRN ×3 (16:51→17:26)
[2023-06-01 16:53] LABS: BASOPHILS ABSOLUTE AUTO 0.05 10^3/uL (0.00-0.10); BASOPHILS PERCENT AUTO 1.1 % (0.0-1.0); EOSINOPHILS ABSOLUTE AUTO 0.31 10^3/uL (0.10-0.30); EOSINOPHILS PERCENT AUTO 6.9 % (1.0-3.0); HEMATOCRIT 41.7 % (37.0-47.0); HEMOGLOBIN 13.3 g/dL (12.0-16.0); LYMPHOCYTES PERCENT AUTO 26.5 % (20.0-40.0); MEAN CORPUSCULAR HEMOGLOBIN 29.6 pg (27.0-31.0); MEAN CORPUSCULAR HGB CONC 31.9 g/dL (32.0-36.0); MEAN CORPUSCULAR VOLUME 92.7 fL (82.0-92.0); MEAN PLATELET VOLUME 9.6 fL (7.4-10.4); MONOCYTES ABSOLUTE AUTO 0.43 10^3/uL (0.10-0.80); MONOCYTES PERCENT AUTO 9.5 % (2.0-8.0); NEUTROPHILS ABSOLUTE AUTO 2.53 10^3/uL (2.50-7.00); PLATELET COUNT,PLT 241 10^3/uL (150-400); RED CELL DISTRIBUTION WIDTH 12.3 % (11.5-14.5); WHITE BLOOD CELL COUNT,WBC 4.52 10^3/uL (5.00-10.00)
[2023-06-01 17:10] LABS: ALBUMIN 3.82 g/dL (3.40-5.00); ANION GAP 13.2 mmol/L (5-15); BILIRUBIN TOTAL 0.7 mg/dL (0.2-1.0); CALCIUM 9.1 mg/dL (8.7-10.3); CREATININE 1.02 mg/dL (0.51-1.17); EST CRCL DRUG DOSING (CG) 44.07 mL/min; POTASSIUM,K 4.2 mmol/L (3.5-5.1)
[2023-06-01] MEDS ORDERED: Alum Hydrox/Mag Hydrox/Simeth 30 ML, Lidocaine 2% 15 ML PO ONE ×2 (17:26)
[2023-06-01] MEDS ORDERED: Aspirin 81 MG Tab.Chew ONE (17:56)
[2023-06-01] MEDS ORDERED: Aspirin 81 MG Tab.Chew PO ONE (17:58)
[2023-06-01] MEDS ORDERED: Nitroglycerin 0.4 MG Tab.SL SL PRN (19:59)
[2023-06-01] MEDS ORDERED: LORazepam 2 MG/ML SDV IVPUSH ONE (20:08)
[2023-06-01] MEDS ORDERED: Sodium Chloride 0.9% 1,000 ML IV ONE (21:42)
[2023-06-02] MEDS ORDERED: Aspirin 81 MG Tab.Chew PO ONE (17:58)
== END 2023-06-02 05:45 | disposition home or self-care (01) ==
LOC: KA.ED 16:41
DX: K21.9 Gastro-esophageal reflux disease without esophagitis (principal); I10 Essential (primary) hypertension; E78.00 Pure hypercholesterolemia, unspecified; Z90.49 Acquired absence of other specified parts of digestive tract; Z79.899 Other long term (current) drug therapy
CPT/HCPCS: 36415; 71045; 80053; 84484; 85025; 85379; 93010; 99284; A9270; J2060; J7030; 96374; 99285-25

== ENCOUNTER 2024-03-13 09:53 | Day surgery (SDC) | payer BC ==
[2024-03-13] MEDS ORDERED: Sodium Chloride 0.9% 10 ML Syringe FLUSH PRN (10:00)
[2024-03-13] MEDS ORDERED: Propofol 200 MG/20 ML SDV ONE (10:13)
[2024-03-13] MEDS: Lactated Ringers 1,000 ML IV SCH (10:26)
== END 2024-03-13 12:30 | disposition home or self-care (01) ==
LOC: KA.SDS 09:53
PROVIDERS: ATTEND Family Medicine
DX: Z12.11 Encounter for screening for malignant neoplasm of colon (principal); K62.1 Rectal polyp; K57.30 Diverticulosis of large intestine without perforation or abscess without bleeding; K64.8 Other hemorrhoids; K64.4 Residual hemorrhoidal skin tags; J44.9 Chronic obstructive pulmonary disease, unspecified; E78.5 Hyperlipidemia, unspecified; Z79.899 Other long term (current) drug therapy
CPT/HCPCS: 45380; J2704; J7120; 00811; J3490